=== PATIENT | female | born 1985 | race Two or more races ===

== ENCOUNTER 2018-06-04 19:32 | Emergency (ER) | payer OTHER ==
[~2018-06-04] VITALS: Ht 162.6 cm; Wt 68.0 kg
[~2018-06-04 19:32] MED LIST: COLACE100 MG PO; PRENATAL1 TAB; PROMETRIUM200 MG; ULTRACET PO
== END 2018-06-04 21:20 | disposition home or self-care (01) ==
LOC: ER 19:32
DX: N93.8 Other specified abnormal uterine and vaginal bleeding (principal)